=== PATIENT | male | born 1955 | race Caucasian/White ===

== ENCOUNTER 2019-05-19 09:45 | Outpatient (CLI) | payer MEDICARE, MEDICAID | END 2019-05-19 23:59 | disposition home or self-care (01) | LOC: RAD 09:45 | PROVIDERS: ATTEND Internal Medicine Interventional Cardiology | DX: I25.10 Atherosclerotic heart disease of native coronary artery without angina pectoris (principal); I10 Essential (primary) hypertension; E78.5 Hyperlipidemia, unspecified; E11.9 Type 2 diabetes mellitus without complications; F17.201 Nicotine dependence, unspecified, in remission; I71.4 Abdominal aortic aneurysm, without rupture; Z79.82 Long term (current) use of aspirin; Z79.84 Long term (current) use of oral hypoglycemic drugs | CPT/HCPCS: 76770-TC ==